=== PATIENT | female | born 1975 | race Caucasian/White ===

== ENCOUNTER 2016-03-25 16:25 | Emergency (ER) | payer MEDICAID ==
[~2016-03-25] VITALS: Ht 162.6 cm; Wt 90.0 kg
[2016-03-25 16:27] VITALS: BP 190/114; PULSE 117; RESP 22; TEMP 98.1; O2SAT 95
--- NOTE | 2016-03-25 18:02 | PD ---
HPI Chief Complaint: Psychiatric Symptoms Time Seen by Provider: 17:55 Travel History International Travel<30 days: No Contact w/Intl Traveler<30days: No Traveled to known affect area: No History of Present Illness HPI 40-year-old female complains of depression. Patient states that she has been depressed recently. Patient has history of depression in the past and was on Paxil and Lamictal. Patient has not had insurance and has not follow-up with any physician for the past few years for depression. Patient denies any suicidal ideation. Patient denies any past medical problem. Patient is not on any routine medication. Patient denies any chance of being . Patient denies any alcohol or illicit drug abuse. PFSH Past Medical History ?: Not LMP: 2007 Past Surgical History Hysterectomy: Yes Social History Tobacco Use: No Allergies-Medications (Allergen,Severity, Reaction): Coded Allergies: Codeine (Verified Allergy, Severe, 03/25/16) Latex (Verified Allergy, Severe, 03/25/16) Vicodin (Verified Allergy, Severe, 03/25/16) Review of Systems General / Constitutional: No: Fever Eyes: No: Visual changes HENT: No: Headaches Cardiovascular: No: Chest Pain or Discomfort Respiratory: No: Shortness of Breath Gastrointestinal: No: Abdominal Pain Genitourinary: No: Dysuria Musculoskeletal: No: Pain Skin: No Rash Neurologic: No: Weakness Psychiatric: Positive: Depression Endocrine: No: Polydipsia Hematologic/Lymphatic: No: Easy Bruising Physical Exam Narrative GENERAL: Well-nourished, well-developed patient. SKIN: Warm and dry. HEAD: Normocephalic. EYES: No scleral icterus. No injection or drainage. NECK: Supple, trachea midline. No JVD or lymphadenopathy. CARDIOVASCULAR: Regular rate and rhythm without murmurs, gallops, or rubs. RESPIRATORY: Breath sounds equal bilaterally. No accessory muscle use. GASTROINTESTINAL: Abdomen soft, non-tender, nondistended. MUSCULOSKELETAL: No cyanosis, or edema. BACK: Nontender without obvious deformity. No CVA tenderness. Neurologic exam normal. Data Data Last Documented VS Vital Signs Date Time Temp Pulse Resp B/P Pulse Ox O2 Delivery O2 Flow Rate FiO2 03/26/16 07:30 98.2 68 20 121/81 98 Room Air Orders Complete Blood Count With Diff (03/25/16 17:59) Comprehensive Metabolic Panel (03/25/16 17:59) Urinalysis - C+S If Indicated (03/25/16 17:59) Drug Screen, Random Urine (03/25/16 17:59) Ed Urine Pregnancytest Poc (03/25/16 17:59) Psych Screen (03/25/16 17:59) Ibuprofen (Motrin) (03/26/16 02:45) Diet Regular Basic (03/26/16 Breakfast) Labs Laboratory Tests Test 03/25/16 03/25/16 19:10 19:20 Urine Color YELLOW Urine Turbidity CLEAR Urine pH 6.0 Urine Specific [place] 1.019 Urine Protein NEG mg/dL Urine Glucose (UA) NEG mg/dL Urine Ketones NEG mg/dL Urine Occult Blood NEG Urine Nitrite NEG Urine Bilirubin NEG Urine Urobilinogen LESS THAN 2.0 MG/DL Urine Leukocyte Esterase NEG Urine RBC LESS THAN 1 /hpf Urine WBC LESS THAN 1 /hpf Urine Squamous Epithelial 3 /hpf Cells Urine Mucus FEW /lpf Microscopic Urinalysis Comment CULT NOT INDICATED Urine Opiates Screen NEG Urine Barbiturates Screen NEG Urine Amphetamines Screen NEG Urine Benzodiazepines Screen NEG Urine Cocaine Screen NEG Urine Cannabinoids Screen NEG White Blood Count 10.3 TH/MM3 Red Blood Count 4.62 MIL/MM3 Hemoglobin 13.4 GM/DL Hematocrit 39.4 % Mean Corpuscular Volume 85.4 FL Mean Corpuscular Hemoglobin 29.1 PG Mean Corpuscular Hemoglobin 34.1 % Concent Red Cell Distribution Width 13.4 % Platelet Count 201 TH/MM3 Mean Platelet Volume 8.0 FL Neutrophils (%) (Auto) 65.8 % Lymphocytes (%) (Auto) 28.7 % Monocytes (%) (Auto) 4.4 % Eosinophils (%) (Auto) 0.7 % Basophils (%) (Auto) 0.4 % Neutrophils # (Auto) 6.8 TH/MM3 Lymphocytes # (Auto) 3.0 TH/MM3 Monocytes # (Auto) 0.4 TH/MM3 Eosinophils # (Auto) 0.1 TH/MM3 Basophils # (Auto) 0.0 TH/MM3 CBC Comment DIFF FINAL Differential Comment Sodium Level 140 MEQ/L Potassium Level 3.9 MEQ/L Chloride Level 105 MEQ/L Carbon Dioxide Level 27.3 MEQ/L Anion Gap 8 MEQ/L Blood Urea Nitrogen 14 MG/DL Creatinine 0.72 MG/DL Estimat Glomerular Filtration 91 ML/MIN Rate Random Glucose 90 MG/DL Calcium Level 8.8 MG/DL Total Bilirubin 0.3 MG/DL Aspartate Amino Transf 18 U/L (AST/SGOT) Alanine Aminotransferase 40 U/L (ALT/SGPT) Alkaline Phosphatase 137 U/L Total Protein 7.8 GM/DL Albumin 4.0 GM/DL MDM Medical Decision Making Medical Screen Exam Complete: Yes Emergency Medical Condition: Yes Interpretation(s) 21:31 PM. CBC within normal limit. CMP within normal limit. Urine drug screen negative. UA is negative. Urine test negative. Differential Diagnosis Differential diagnosis including depression, adjustment disorder, bipolar disorder. Narrative Course 40-year-old female with depression. 20 1:32 PM. Patient is medically cleared for psychiatric evaluation and disposition. Luis Enrique Rubin MD Mar 25, 2016 18:02
[2016-03-25 19:35] LABS: AUTOMATED NEUTROPHIL # 6.8 TH/MM3 (1.8-7.7); BASOPHIL % 0.4 % (0.0-2.0); EOSINOPHIL # 0.1 TH/MM3 (0-0.4); EOSINOPHIL % 0.7 % (0.0-4.0); HEMATOCRIT 39.4 % (35.0-46.0); HEMO FLAGS DIFF FINAL; LYMPH % 28.7 % (9.0-44.0); MEAN CELL VOLUME 85.4 FL (80.0-100.0); MEAN CORPUSCULAR HEMOGLOBIN 29.1 PG (27.0-34.0); MEAN CORPUSCULAR HGB CONC 34.1 % (32.0-36.0); MONO % 4.4 % (0.0-8.0); NEUT % 65.8 % (16.0-70.0); PLATELET COUNT 201 TH/MM3 (150-450); RED BLOOD COUNT 4.62 MIL/MM3 (4.00-5.30); RED CELL DISTRIBUTION WIDTH 13.4 % (11.6-17.2); WHITE BLOOD COUNT 10.3 TH/MM3 (4.0-11.0)
[2016-03-25 19:38] LABS: BLOOD, URINE NEG (NEG); COMMENT (UR) CULT NOT INDICATED; CULTURE IF INDICATED CULT NOT INDICATED; GLUCOSE,URINE NEG (NEG); KETONE, URINE NEG (NEG); MUCUS URINE FEW /lpf (OCC); NITRITE,URINE NEG (NEG); SQUAMOUS EPITHELIAL CELL URINE 3 /hpf (0-5); URINE COLOR YELLOW (YELLW/STRAW)
[2016-03-25 19:42] LABS: AMPHETAMINE, URINE NEG (NEG); BARBITURATES, URINE NEG (NEG); COCAINE, URINE NEG (NEG)
[2016-03-25 20:11] LABS: ANION GAP 8 MEQ/L (5-15); BICARBONATE 27.3 MEQ/L (21.0-32.0); BLOOD UREA NITROGEN 14 MG/DL (7-18); CHLORIDE 105 MEQ/L (98-107); GLOMERULAR FILTRATION RATE 91 ML/MIN (>89); POTASSIUM 3.9 MEQ/L (3.5-5.1); SODIUM (NA) 140 MEQ/L (136-145)
[2016-03-25 20:15] LABS: ALKALINE PHOSPHATASE 137 U/L (45-117); ALT (GPT) 40 U/L (10-53); AST (GOT) 18 U/L (15-37); TOTAL BILIRUBIN ADULT 0.3 MG/DL (0.2-1.0)
[2016-03-25 21:50] VITALS: BP 133/72; PULSE 92; RESP 17; O2SAT 100
[2016-03-26 02:45] VITALS: BP 131/52; PULSE 88; RESP 16; O2SAT 99
[2016-03-26] MEDS ORDERED: IBUPROFEN 600 MG TAB PO ONE (02:45)
[2016-03-26 07:30] VITALS: BP 121/81; PULSE 68; RESP 20; TEMP 98.2; O2SAT 98
[2016-03-26 11:41] VITALS: BP 146/91; PULSE 77; RESP 18; TEMP 97.1; O2SAT 100
[2016-03-26 14:56] VITALS: BP 112/66; PULSE 72; RESP 18; O2SAT 97
[2016-03-26 18:12] VITALS: BP 130/88; PULSE 79; RESP 18; O2SAT 98
--- NOTE | 2016-03-26 20:54 | MB ---
cc: HARPREET SKINNER MD DATE OF CONSULTATION 03/26/2016 REQUESTING PHYSICIAN Emergency department. REASON FOR CONSULTATION Voluntary psychiatric evaluation. HISTORY OF PRESENT ILLNESS Ms. 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 She complained of depressive symptoms to the ED provider. Reviewing the electronic medical record, I note this is the patient's first visit to [place]. The patient seen and examined. Chart reviewed. Case discussed with nursing staff in the J pod. On my examination today, the patient is tearful and dysphoric. She admits to feeling quite depressed. She says that she has been off of her medications since going through three doctors ending in April 2015 because of insurance issues. She says that she did best in the past on Lamictal and Paxil. She says that she has been dealing with numerous psychosocial stressors including financial problems, homelessness, loss of pet cats and spending [place] in a hotel room. This has apparently all been going on since November of last year. The patient denies any suicidal ideation and says that she would never hurt herself on account of her experience with her own mother's suicide when the patient was 21 years old. She says that she would not want to inflict that on her family. She also notes that she does not really want to . She does note some mood instability last week in which she behaved impulsively in an online multi player game that she participates in. Denies audiovisual hallucinations. No evident delusional beliefs. The patient is somewhat anhedonic. The remainder of the psychiatric ROS is negative. PAST PSYCHIATRIC HISTORY The patient reports prior diagnoses as noted above. She is not currently under the care of an outpatient psychiatrist. She denies a history of psychiatric admissions. She reports one prior suicide attempt by overdose when she was 17 years old. FAMILY HISTORY The patient reports a family history of bipolar disorder in her mother. Her mother completed suicide when the patient was 21 years old. A maternal uncle and three cousins also completed suicide. CHEMICAL DEPENDENCY HISTORY The patient denies a history of abuse of drugs or alcohol. SOCIAL HISTORY The patient is presently homeless and residing in a hotel room. She reports that she has three children, two of whom are with her. She notes that one of her children has significant psychiatric issues of her own and has threatened suicide in the past. She has some college education. 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 She denies any or legal history. She is not particularly islam but says that she takes her children to synagogue for something to do and also because they seem to enjoy it. PAST MEDICAL HISTORY Includes a history of: 1. Hyperlipidemia. 2. Heart murmur. 3. Sciatica on the left. REVIEW OF SYSTEMS No reported headache, vision or hearing changes, chest pain, shortness of breath, bowel or bladder issues. No other physical complaints. PHYSICAL EXAMINATION Physical examination was completed in the emergency room by the ER staff and the patient was medically cleared. On my examination today, the patient appears to be in no acute physical distress. No abnormal motor movements noted. Labs and vital signs reviewed. I note that the patient's CBC is unremarkable. CMP is remarkable only for mildly elevated alkaline phosphatase of 137. Urine toxicology is negative. Alcohol level was not performed. Urinalysis is bland. The ED point of care test was negative. MENTAL STATUS EXAM The patient is in hospital gown. She is fairly well-groomed and maintaining basic hygiene. She is awake, alert and oriented x3. No abnormal motor movements noted. Speech is within normal limits for rate, tone and volume. Language and fund of knowledge seem adequate and appropriate for age. Mood is depressed and affect is restricted. Thought process linear. No loosening of associations. No evident delusions. Denies audiovisual hallucinations. Denies suicidal or homicidal ideation. Insight and judgment are fair. ASSESSMENT/PLAN Bipolar disorder, currently depressed moderate, F31.32. This is a 40-year-old female with psychiatric history as detailed above who presents voluntarily for psychiatric evaluation. She has been off of her medications for almost a year now because of insurance issues. She has been dealing with several psychosocial stressors and has been feeling depressed. She does note that she has a prior good response to Lamictal and Paxil. She is currently denying suicidal ideation and says that she would never injure herself because of the impact that her mother's suicide had on the family when she was a young adult. I adult ministries director that she does not meet Enrique ACT criteria as there does not seem to be any imminent risk of harm to self or others. She would doubtless benefit from inpatient psychiatric stabilization and she is agreeable at present to pursuing this. There are no beds available within our system, and we are working to refer her to outlying hospitals. We will retain her voluntarily in the J pod in the meantime. I will resume her Lamictal and Paxil, starting the Lamictal at the lowest dose given the risk of Felix-Kirit syndrome. I have discussed the risks and benefits of these medications with the patient. The patient to be retained in the J pod until inpatient psychiatric placement can be found. Case discussed with RN in the J pod. Thank you very much for this consultation. Harpreet Skinner DC/JULIET /5:45 PM /8:42 PM MTDD
[2016-03-26] MEDS ORDERED: lamoTRIgine 25 MG TAB PO SCH (21:00)
[2016-03-27] MEDS ORDERED: PARoxetine HCL 20 MG TAB PO SCH (09:00)
== END 2016-03-26 19:44 | disposition home or self-care (01) ==
LOC: NEPA 16:25 → NEPJ 03-26 19:44
DX: F31.32 Bipolar disorder, current episode depressed, moderate (principal)
CPT/HCPCS: 80053; 80307; 81001; 84703; 85025; 99284

== ENCOUNTER 2016-07-17 21:52 | Emergency (ER) | payer MEDICAID ==
[~2016-07-17] VITALS: Ht 172.7 cm; Wt 88.0 kg
[2016-07-17 21:54] VITALS: BP 133/80; PULSE 78; RESP 16; TEMP 98.5; O2SAT 100
--- NOTE | 2016-07-17 22:27 | PD ---
Physical Exam Time Seen by Provider: 22:24 Narrative 41yo F c/o LLQ abd pain and low back pain. Says she had sexual intercourse last bright and the condom broke and is concerned of retained condom in vagina. Denies vaginal discharge, odor, itch, bleeding. Denies dysuria. Denies fever , vomiting. VS reviewed. Patient seen in triage. Awaiting bed placement. Data Data Last Documented VS Vital Signs Date Time Temp Pulse Resp B/P Pulse Ox O2 Delivery O2 Flow Rate FiO2 07/17/16 21:54 98.5 78 16 133/80 100 Room Air MDM Supervised Visit with RYAN: Cara Herndon July 17, 2016 22:26
--- NOTE | 2016-07-17 23:23 | PD ---
HPI Chief Complaint: Back/ Neck Pain or Injury Time Seen by Provider: 23:20 Travel History International Travel<30 days: No Contact w/Intl Traveler<30days: No Traveled to known affect area: No History of Present Illness HPI 41-year-old female presents to the emergency department for evaluation of low back pain and pelvic pain. Patient states she had sex yesterday and the condom broke. She states she is concerned of retained condom. The patient states she currently has 3 sexual partners. The patient states that she always uses condoms. Patient denies . She states the last time she had pain like this was when she had a urinary tract infection. She has a history of cholecystectomy and hysterectomy. She has no chronic medical problems and takes no medications. She denies any urinary symptoms. She denies any abnormal vaginal discharge. PFSH Past Medical History Bipolar Disorder: Yes Depression: Yes Heart Rhythm Problems: Yes (HEART MURMUR) High Cholesterol: Yes Herniated Disk: Yes Ulcer: Yes Past Surgical History Cholecystectomy: Yes Hysterectomy: Yes Social History Alcohol Use: No Tobacco Use: No Substance Use: No Allergies-Medications (Allergen,Severity, Reaction): Coded Allergies: Codeine (Verified Allergy, Severe, 07/17/16) Latex (Verified Allergy, Severe, 07/17/16) Vicodin (Verified Allergy, Severe, 07/17/16) Reported Meds & Prescriptions Reported Meds & Active Scripts Active No Active Prescriptions or Reported Medications Review of Systems Except as stated in HPI: all other systems reviewed are Neg Physical Exam Narrative GENERAL: Well-nourished, well-developed female patient, ambulatory. Afebrile. SKIN: Focused skin assessment warm/dry. HEAD: Normocephalic. Atraumatic EYES: No scleral icterus. No injection or drainage. NECK: Supple, trachea midline. No JVD or lymphadenopathy. CARDIOVASCULAR: Regular rate and rhythm without murmurs, gallops, or rubs. RESPIRATORY: Breath sounds equal bilaterally. No accessory muscle use. GASTROINTESTINAL: Abdomen soft, non-tender, nondistended. No abdominal pain to palpation. MUSCULOSKELETAL: No cyanosis, or edema. BACK: Nontender without obvious deformity. Mild left CVA tenderness. GENITOURINARY: Normal external genitalia without lesions or erythema. Vaginal vault without blood, white drainage noted. Cervical os was closed without drainage. Patient had positive cervical motion tenderness. Uterus nontender and nonenlarged. Bilateral adnexa nontender without masses. No foreign body noted. This exam was done with the nurse at bedside. Data Data Last Documented VS Vital Signs Date Time Temp Pulse Resp B/P Pulse Ox O2 Delivery O2 Flow Rate FiO2 07/17/16 23:15 78 16 07/17/16 21:54 98.5 133/80 100 Room Air Orders Gc And Chlamydia Pcr (07/17/16 23:19) Wet Prep Profile (07/17/16 23:19) Urinalysis - C+S If Indicated (07/17/16 23:19) Ed Urine Pregnancytest Poc (07/17/16 23:19) Azithromycin Powd Pack (Zithromax Powd P (07/17/16 23:30) Ceftriaxone Inj (Rocephin Inj) (07/17/16 23:30) Lidocaine 1% Inj (50 Ml) (Xylocaine 1% I (07/17/16 23:30) Labs Laboratory Tests Test 07/17/16 23:28 Urine Color YELLOW Urine Turbidity HAZY Urine pH 5.5 Urine Specific [place] 1.034 Urine Protein TRACE mg/dL Urine Glucose (UA) NEG mg/dL Urine Ketones NEG mg/dL Urine Occult Blood NEG Urine Nitrite NEG Urine Bilirubin NEG Urine Urobilinogen LESS THAN 2.0 MG/DL Urine Leukocyte Esterase NEG Urine RBC 1 /hpf Urine WBC 1 /hpf Urine Squamous Epithelial 3 /hpf Cells Urine Bacteria RARE /hpf Urine Mucus FEW /lpf Microscopic Urinalysis Comment CULT NOT INDICATED Clue Cells (Wet Prep) NONE SEEN Vaginal Trichomonas (Wet Prep) NONE SEEN Vaginal Yeast (Wet Prep) NONE SEEN MDM Medical Decision Making Medical Screen Exam Complete: Yes Emergency Medical Condition: Yes Medical Record Reviewed: Yes Differential Diagnosis Urinary tract infection versus vaginitis versus retained condom versus muscle strain Narrative Course 41-year-old female presents to the emergency department for evaluation of low back pain and pelvic pain that started this morning. She reports having sex yesterday and the condom broke. Patient appears well in exam. There is no abdominal or pelvic pain to palpation. UA and urine test are ordered and pending. Pelvic exam will be completed with wet prep profile as well as for Chlamydia/gonorrhea. UA is negative for acute infection. UPT is negative. Wet prep is negative. Patient had CMT on pelvic exam. Due to this, the patient will be treated for possible PID. Patient is given Toradol 60 mg IM for pain. Patient is given Rocephin 250 mg IM and azithromycin 1 g by mouth. Patient will be discharged with a prescription for doxycycline. She is to follow up with her primary care physician. The patient was discharged in stable condition with instructions, including return instructions and follow up instructions. Diagnosis Primary Impression: Pelvic inflammatory disease (PID) Referrals: Primary Care Physician 2 days Patient Instructions: General Instructions, Pelvic Inflammatory Disease (ED) Additional Instructions: Take antibiotic as directed until gone. Follow-up with your primary care physician. Return to the emergency department for any acute worsening of symptoms. Med/Other Pt SpecificInfo: Prescription(s) given Scripts Doxycycline Hyclate 100 Mg Gpm132 Mg PO BID #28 CAP Ref 0 Prov:Yuli Gaona 07/17/16 Disposition: 01 DISCHARGE HOME Condition: Stable Yuli Gaona July 17, 2016 23:23
[2016-07-17] MEDS ORDERED: cefTRIAXone 250 MG VIAL IM ONE (23:30)
[2016-07-17] MEDS ORDERED: LIDOCAINE HCL 1% 50 ML VIAL IM ONE (23:30)
[2016-07-17] MEDS ORDERED: AZITHROMYCIN PWD FOR SUSP 1 GM PACKET PO ONE (23:30)
[2016-07-17 23:43] LABS: BACTERIA, URINE RARE /hpf; BLOOD, URINE NEG (NEG); COMMENT (UR) CULT NOT INDICATED; CULTURE IF INDICATED CULT NOT INDICATED; GLUCOSE,URINE NEG (NEG); KETONE, URINE NEG (NEG); MUCUS URINE FEW /lpf (OCC); NITRITE,URINE NEG (NEG); PH, URINE 5.5 (5.0-8.5); SQUAMOUS EPITHELIAL CELL URINE 3 /hpf (0-5); URINE COLOR YELLOW (YELLW/STRAW)
[2016-07-17] MEDS ORDERED: DOXY100C PO (23:57)
[2016-07-18] MEDS ORDERED: KETOROLAC TROMETHAMINE 60 MG/2 ML (IM) VIAL IM ONE
[2016-07-18 01:36] LABS: CHLAMYDIA PCR NOT DETECTED (NOT DETECT); NEISSERIA PCR NOT DETECTED (NOT DETECT)
== END 2016-07-18 01:12 | disposition home or self-care (01) ==
LOC: NEPD 21:52
DX: N73.9 Female pelvic inflammatory disease, unspecified (principal)
CPT/HCPCS: 81001; 84703; 87210; 87491; 87591; 96372; 99284; J0696; J1885

== ENCOUNTER 2016-08-13 09:31 | Emergency (ER) | payer MEDICAID ==
[~2016-08-13] VITALS: Ht 162.6 cm; Wt 90.0 kg
[~2016-08-13 09:31] MED LIST: DOXY100C PO
[2016-08-13 09:32] VITALS: BP 128/82; PULSE 78; RESP 24; TEMP 98.9; O2SAT 99
[2016-08-13] MEDS ORDERED: BENZ100 PO (10:15)
[2016-08-13] MEDS ORDERED: AZIT250T3 PO (10:15)
[2016-08-13] MEDS ORDERED: ALBUTEROL SULFATE 90 MCG/ACT HFA 8 GM INHALER INH ONE (10:15)
[2016-08-13] MEDS ORDERED: ALBUAER3 INH (10:15)
[2016-08-13] MEDS ORDERED: DEXAMETHASONE SOD PHOS 4 MG/ML VIAL IM ONE (10:15)
--- NOTE | 2016-08-13 10:16 | PD ---
HPI Chief Complaint: Cold / Flu Symptoms Time Seen by Provider: 09:54 Travel History International Travel<30 days: No Contact w/Intl Traveler<30days: No Traveled to known affect area: No History of Present Illness HPI 41-year-old female arrives complaining of cough for about 3 days. She is also had minimal rhinorrhea. She noticed blood-tinged sputum yesterday multiple times. She also reports sore throat, bilateral otalgia and generalized cephalgia. She believes that yesterday she may have suffered a rib injury due to a severe coughing spell. She is not sure if she had a fever however notes such a generalized state of malaise she failed to take notice. PFSH Past Medical History Bipolar Disorder: Yes Depression: Yes Heart Rhythm Problems: Yes (HEART MURMUR) High Cholesterol: Yes Herniated Disk: Yes (L4,L5,L6) Ulcer: Yes Past Surgical History Cholecystectomy: Yes Hysterectomy: Yes (PARTIAL) Social History Alcohol Use: Yes Tobacco Use: No Substance Use: No Allergies-Medications (Allergen,Severity, Reaction): Coded Allergies: Codeine (Verified Allergy, Severe, 08/13/16) Latex (Verified Allergy, Severe, 08/13/16) Vicodin (Verified Allergy, Severe, 08/13/16) Reported Meds & Prescriptions Reported Meds & Active Scripts Active Proair Hfa 8.5 GM Inh (Albuterol Sulfate) 90 Mcg/Act Aer 2 Puff INH Q6H PRN 108 mcg/actuation Tessalon Perles (Benzonatate) 100 Mg Cap 100 Mg PO TID PRN 3 Days Azithromycin 250 Mg Tab 250 Mg PO DIRECTED Take 2 tabs (500 mg) on day 1 then 1 tab daily x 4 days. Doxycycline Hyclate 100 Mg Cap 100 Mg PO BID Review of Systems Except as stated in HPI: all other systems reviewed are Neg Respiratory: Positive: Cough, Hemoptysis Physical Exam Narrative GENERAL: 41-year-old female pleasant occasional cough speaking full sentences distress SKIN: Focused skin assessment warm/dry. HEAD: Atraumatic. Normocephalic. EYES: Pupils equal and round. No scleral icterus. No injection or drainage. Tympanic membrane clean dry and intact pain bilaterally. Posterior oropharynx widely patent without hypertrophy or exudate erythema or asymmetry of either tonsil. No depression of the soft palate or uvula deviation. ENT: No nasal bleeding or discharge. Mucous membranes pink and moist. NECK: Trachea midline. No JVD. CARDIOVASCULAR: Regular rate and rhythm. No murmur appreciated. RESPIRATORY: No tachypnea or accessory muscle use. Occasional crackle. GASTROINTESTINAL: Abdomen soft, non-tender, nondistended. Hepatic and splenic margins not palpable. MUSCULOSKELETAL: No obvious deformities. No clubbing. No cyanosis. No edema. NEUROLOGICAL: Awake and alert. No obvious cranial nerve deficits. Motor grossly within normal limits. Normal speech. PSYCHIATRIC: Appropriate mood and affect; insight and judgment normal. Data Data Last Documented VS Vital Signs Date Time Temp Pulse Resp B/P Pulse Ox O2 Delivery O2 Flow Rate FiO2 08/13/16 10:18 18 Room Air 08/13/16 09:32 98.9 78 128/82 99 Vital signs reviewed Orders Dexamethasone Inj (Decadron Inj) (08/13/16 10:15) Albuterol Hfa Inh (Proair Hfa Inh) (08/13/16 10:15) [facility] Medical Decision Making Medical Screen Exam Complete: Yes Emergency Medical Condition: Yes Differential Diagnosis Postnasal drip, pneumonia, bronchitis, GERD, otitis media, sinusitis Narrative Course Spicules of blood within expectorant at this point with normal vital signs and a well-appearing exam I think is unlikely to reflect hemorrhagic shock/massive hemoptysis, need for transfusion or need to rule out pulmonary/ENT malignancy. We can treat symptomatically with scripts as below. Return precautions discussed. Patient agreeable with plan. Diagnosis Primary Impression: Cough Additional Impression: Hemoptysis Referrals: Primary Care Physician 2 days Additional Instructions: You have a choice when it comes to health care, and we are glad that you chose [facility]. Hopefully, we have met your expectations on today's visit. You are welcome to return to [facility] at any time, as we are committed to meeting the health care needs of our community. Med/Other Pt SpecificInfo: Prescription(s) given Scripts Albuterol 8.5 GM Inh (Proair Hfa 8.5 GM Inh)90 Mcg/Act Aer2 Puff INH Q6H PRN ( COUGH) #1 INHALER Ref 0 108 mcg/actuation Prov:Nick Gillis MD 08/13/16 Benzonatate (Tessalon Perles)100 Mg Dvd446 Mg PO TID PRN (COUGH) 3 Days Ref 0 Prov:Nick Gillis MD 08/13/16 Azithromycin 250 Mg Sit630 Mg PO DIRECTED #6 TAB Ref 0 Take 2 tabs (500 mg) on day 1 then 1 tab daily x 4 days. Prov:Nick Gillis MD 08/13/16 Disposition: 01 DISCHARGE HOME Condition: Stable Nick Gillis MD Aug 13, 2016 10:16
[2016-08-13] MEDS ORDERED: ALBUTEROL SULFATE 90 MCG/ACT HFA 18 GM INHALER INH ONE (10:45)
== END 2016-08-13 11:00 | disposition home or self-care (01) ==
LOC: NEPD 09:31
DX: R05 Cough (principal); R04.2 Hemoptysis; E78.00 Pure hypercholesterolemia, unspecified
CPT/HCPCS: 96372; 99285; J1100

== ENCOUNTER 2016-09-04 21:18 | Emergency (ER) | payer MEDICAID ==
[~2016-09-04] VITALS: Ht 162.6 cm; Wt 75.0 kg
[~2016-09-04 21:18] MED LIST changes: +ALBUAER3 INH; +AZIT250T3 PO; +BENZ100 PO
[2016-09-04 21:20] VITALS: BP 144/86; PULSE 78; RESP 16; TEMP 98.4; O2SAT 100
--- NOTE | 2016-09-04 21:34 | PD ---
Physical Exam Time Seen by Provider: 21:31 Narrative 41yo F c/o sore throat and cough w/sputum production since Sunday. C/o chest tightness today. Unknown fevers. Was seen two weeks ago here and given Z-joseline and feels like her symptoms never really resolved. Denies hx asthma. Says shes prone to pneumonia. Patient seen in triage. VS reviewed. Awaiting bed placement. Data Data Last Documented VS Vital Signs Date Time Temp Pulse Resp B/P Pulse Ox O2 Delivery O2 Flow Rate FiO2 09/04/16 21:20 98.4 78 16 144/86 100 Room Air MDM Supervised Visit with RYAN: Cara Herndon Sep 04, 2016 21:33
[2016-09-04] MEDS ORDERED: guaiFENesin/DEXTROMETHORPHAN 200 MG/20 MG/10 ML CUP PO ONE (23:30)
--- NOTE | 2016-09-04 23:38 | PD ---
HPI Chief Complaint: Cold / Flu Symptoms Time Seen by Provider: 23:19 Travel History International Travel<30 days: No Contact w/Intl Traveler<30days: No Traveled to known affect area: No History of Present Illness HPI 41yo F with no PMH presents to the ED with c/o productive cough, nasal congestion, right ear pain, midsternal chest pain with coughing for about 3 days. Feels a little sob with coughing. Pt states she had similar symptoms 2.5 weeks ago and had z-garry which resolved the symptoms but now they are back. Denies any fever, n/v, abdominal pain, focal weakness or numbness. Denies any sick contacts. No family history of sudden cardiac . Denies smoking cig or cocaine use. PFSH Past Medical History Bipolar Disorder: Yes Depression: Yes Heart Rhythm Problems: Yes (HEART MURMUR) High Cholesterol: Yes Diminished Hearing: No Herniated Disk: Yes (L4,L5,L6) Ulcer: Yes Tetanus Vaccination: Unknown Influenza Vaccination: No ?: Not LMP: 2006 Past Surgical History Cholecystectomy: Yes Hysterectomy: Yes (PARTIAL) Social History Alcohol Use: Yes (PT STATES THAT SHE DRINKS ABOUT 6 DRINKS PER DAY, EVERY FEW DAYS) Tobacco Use: No Substance Use: No Allergies-Medications (Allergen,Severity, Reaction): Coded Allergies: Codeine (Verified Allergy, Severe, 09/04/16) Latex (Verified Allergy, Severe, 09/04/16) Vicodin (Verified Allergy, Severe, 09/04/16) Reported Meds & Prescriptions Reported Meds & Active Scripts Active Proair Hfa 8.5 GM Inh (Albuterol Sulfate) 90 Mcg/Act Aer 2 Puff INH Q6H PRN 108 mcg/actuation Tessalon Perles (Benzonatate) 100 Mg Cap 100 Mg PO TID PRN 3 Days Azithromycin 250 Mg Tab 250 Mg PO DIRECTED Take 2 tabs (500 mg) on day 1 then 1 tab daily x 4 days. Doxycycline Hyclate 100 Mg Cap 100 Mg PO BID Review of Systems Except as stated in HPI: all other systems reviewed are Neg Physical Exam Narrative GENERAL: 41yo F in mild distress. SKIN: Focused skin assessment warm/dry. HEAD: Atraumatic. Normocephalic. EYES: Pupils equal and round. No scleral icterus. No injection or drainage. ENT: Increased bilateral nasal turbinates. NECK: Trachea midline. No JVD. CARDIOVASCULAR: Regular rate and rhythm. No murmur appreciated. CHEST WALL: +TTP mid sternum. No rash. RESPIRATORY: No accessory muscle use. Clear to auscultation. Breath sounds equal bilaterally. Saturating at 100% RA. GASTROINTESTINAL: Abdomen soft, non-tender, nondistended. No rebound tenderness or guarding. MUSCULOSKELETAL: No obvious deformities. No clubbing. No cyanosis. No edema. NEUROLOGICAL: Awake and alert. No obvious cranial nerve deficits. Motor grossly within normal limits. Normal speech. PSYCHIATRIC: Appropriate mood and affect; insight and judgment normal. Data Data Last Documented VS Vital Signs Date Time Temp Pulse Resp B/P Pulse Ox O2 Delivery O2 Flow Rate FiO2 09/04/16 21:33 16 09/04/16 21:20 98.4 78 144/86 100 Room Air Orders Electrocardiogram (09/04/16 ) Chest, Single Ap (09/04/16 ) Guaifen-Dm 200-20 Mg/10 Ml Liq (Robituss (09/04/16 23:30) MDM Medical Decision Making Medical Screen Exam Complete: Yes Emergency Medical Condition: Yes Interpretation(s) EKG: NSR 73bpm. Normal axis. TWI III. No ST segment elevation or depression. Differential Diagnosis URI vs. viral syndrome vs. pneumonia Narrative Course 41yo F with cold like symptoms. Pt given robitussin and reevaluated at bedside and feels better. CXR showed no acute disease. Pt insist on getting azithromycin. Will give prescriptions. Return precautions given. Chest pain only with cough and I do not think it is cardiac. Diagnosis Primary Impression: URI (upper respiratory infection) Qualified Code: J06.9 - Upper respiratory tract infection, unspecified type Patient Instructions: General Instructions Departure Forms: Tests/Procedures Additional Instructions: Please follow up with your PMD in 1-2 days. Return to the ED if symptoms worsen. Med/Other Pt SpecificInfo: Prescription(s) given Scripts Dextromethorphan (Robitussin Lingering Cold)15 Mg Cap30 Mg PO Q8H PRN (COUGH) 5 Days Ref 0 Prov:Susan Carolina DO 09/05/16 Azithromycin (Zithromax Z-Garry)250 Mg [id number] Mg PO DIRECTED #1 DSPK Ref 0 500 MG (2 tabs) day 1, then 1 tab days 2-5. Prov:Susan Carolina DO 09/05/16 Disposition: 01 DISCHARGE HOME Condition: Stable Susan Carolina DO Sep 04, 2016 23:38
--- NOTE | 2016-09-05 00:07 | RADRPT ---
EXAM DATE/TIME: 09/04/2016 23:50 [facility] COMPARISON: No previous studies available for comparison. INDICATIONS : Cough. MEDICAL HISTORY : None. SURGICAL HISTORY : None. ENCOUNTER: Initial ACUITY: 1 day PAIN SCORE: 0/10 LOCATION: Bilateral chest FINDINGS: A single view of the chest demonstrates the lungs to be symmetrically aerated without evidence of mas s, infiltrate or effusion. The cardiomediastinal contours are unremarkable. Osseous structures are intact. CONCLUSION: No acute disease. Primitivo Handley MD on September 05, 2016 at 0:04 Board Certified Radiologist. This report was verified electronically.
[2016-09-05] MEDS ORDERED: ZITHTAB PO (01:00)
[2016-09-05] MEDS ORDERED: ROBICAP2 PO (01:00)
--- NOTE | 2016-09-05 17:06 | EKG ---
Date Performed: 09/05/2016 Time Performed: 00:00:39 PTAGE: 41 years EKG: Sinus rhythm WITH SINUS ARRHYTHMIA CONSIDER INFERIOR MYOCARDIAL INFARCTION-AGE INDERMINATE ABNORMAL ECG NO PREVIOUS TRACING DOCTOR: Brandon Salguero Interpretating Date/Time 09/05/2016 17:05:11
== END 2016-09-05 02:16 | disposition home or self-care (01) ==
LOC: NEPD 21:18
DX: J06.9 Acute upper respiratory infection, unspecified (principal); R07.89 Other chest pain; R94.31 Abnormal electrocardiogram [ECG] [EKG]; I49.8 Other specified cardiac arrhythmias; F31.9 Bipolar disorder, unspecified; E78.00 Pure hypercholesterolemia, unspecified; F32.9 Major depressive disorder, single episode, unspecified; Z79.899 Other long term (current) drug therapy; Z88.5 Allergy status to narcotic agent
CPT/HCPCS: 71010; 93005